=== PATIENT | female | born 1950 | race African-American/Black ===

== ENCOUNTER 2016-11-11 17:27 | Emergency (ER) | payer OTHER, MEDICARE ==
[~2016-11-11] VITALS: Ht 160 cm; Wt 88.5 kg
[2016-11-11] MEDS ORDERED: HYDROcodone/APAP 5/325MG 1 TAB TABLET PO ONE (18:15)
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
[2016-11-11 19:55] VITALS: BP 152/90
--- NOTE | 2016-11-12 06:11 | EKG ---
[facility] [address] [place] [address] Test Date: 2016-11-11 Test Time: 18:14:08 Pat Name: JAIME ANSARI Department: Room: Gender: F [employer] Manager: : 1950 Requested By: MELISSA SELF Order Number: [id number] Reading MD: Edwardo Morris Measurements Intervals [place] Rate: 67 P: 71 MA: 192 QRS: -8 QRSD: 80 T: 3 QT: 442 QTc: 470 Interpretive Statements SINUS RHYTHM Electronically Signed On 11-13-2016 11:16:52 CDT by Edwardo Morris
--- NOTE | 2016-11-12 07:45 | RAD ---
Exam performed: 3 views left knee and lumbar spine. Clinical indication: Pain in the lower back and knee, status post fall Date of Service: 11/11/16 Comparison:None available 3 views left knee findings: AP, oblique and lateral radiographs of the knee reveal the osseous structures to be intact and well aligned. The joint space is well-preserved. The articular margins are smooth. Evidence of calcific loose body or joint effusion is absent. Impression: 1. No acute abnormality seen in the left knee. End impression X-ray lumbar spine findings: AP, lateral and coned views of the lumbosacral spine are obtained. Normal sagittal alignment is preserved. 5 nonrib-bearing vertebral bodies are identified. The vertebral body heights are maintained. There is narrowing of L2/3 and L3/4 intervertebral disc spaces with mild osteophytic spurring. No acute compression fracture. No prevertebral soft tissue swelling is identified. Nonspecific bowel gas pattern. Impression: 1. Mild spondylotic changes and degenerative disc disease involving the lumbar spine. 2. No acute abnormality seen
== END 2016-11-11 19:55 | disposition home or self-care (01) ==
LOC: ER 17:27
DX: S89.92XA Unspecified injury of left lower leg, initial encounter (principal); S39.92XA Unspecified injury of lower back, initial encounter; I10 Essential (primary) hypertension; V43.62XA Car passenger injured in collision with other type car in traffic accident, initial encounter; Y93.89 Activity, other specified; Y92.481 Parking lot as the place of occurrence of the external cause; Y99.8 Other external cause status
CPT/HCPCS: 72100; 73562; 93005; 99284

== ENCOUNTER → 2017-02-02 | Outpatient (CLI) | payer MEDICARE, OTHER ==
--- NOTE | 2017-02-04 14:34 | KCIC ---
Bilateral digital screening mammogram History: Annual screening mammography Comparison: Outside mammograms from [facility] subsequently made available for comparison purposes dated December 11, 2006 through August 10, 2015. Findings: Breast Tissue Density B :There are scattered areas of fibroglandular density. Bilateral digital mammogram images are obtained with CAD. No suspicious masses, architectural distortion, or grouped microcalcifications are identified. Impression: Negative exam. Recommend screening mammogram in one year. BI-RADS Category 1: Negative. PQRS compliance statement - Patient information was entered into a reminder system with a target due date for the next mammogram. Electronically signed by: Keturah Bolden MD (02/04/2017 2:30 PM) [id number]
== END | disposition home or self-care (01) ==
LOC: KCIC MAMMO 18:02
PROVIDERS: ATTEND Obstetrics & Gynecology
DX: Z12.31 Encounter for screening mammogram for malignant neoplasm of breast (principal)
CPT/HCPCS: G0202; 77067

== ENCOUNTER → 2017-10-27 | Outpatient (CLI) | payer MEDICARE, OTHER ==
--- NOTE | 2017-10-27 16:46 | KCIC ---
Bilateral digital screening mammograms with 3-D tomosynthesis: Reason for examination: Routine screening. Comparison is made to previous studies dated 02/02/2017 and 08/10/2015. Bilateral mammograms in CC and oblique projections were obtained with 2-D imaging and 3-D tomosynthesis imaging on a Siemens Inspiration unit and reviewed on the workstation. Interpretation was made with the benefit of CAD. The skin and nipples show no abnormalities. No abnormal axillary lymph nodes are seen. The breast parenchyma shows scattered fatty and fibroglandular density. (Breast density: Category B.) There continued be small nodular parenchymal densities which are unchanged. There are no new dominant masses, suspicious calcifications or architectural distortion. Benign calcifications are present. Impression: No evidence of malignancy. Recommend routine screening. BI-RAD Category 2: Benign. "Our facility is accredited by the [employer] Mammography Program." This patient's information has been entered into a reminder system for the patient to be notified with the results of her examination and a target date for the next mammogram. Electronically signed by: Marcia Blackmon MD (10/27/2017 4:42 PM) [id number]
== END | disposition home or self-care (01) ==
LOC: KCIC MAMMO 13:44
PROVIDERS: ATTEND Family Medicine
DX: Z12.31 Encounter for screening mammogram for malignant neoplasm of breast (principal); I10 Essential (primary) hypertension
CPT/HCPCS: 77063; 77067

== ENCOUNTER → 2018-11-19 | Outpatient (CLI) | payer OTHER ==
--- NOTE | 2018-11-19 16:21 | KCIC ---
Bilateral digital screening mammograms with 3-D tomosynthesis: Reason for examination: Routine screening. Comparison is made to previous examinations dated 10/27/2017 and 02/02/2017. Bilateral mammograms in CC and oblique projections were obtained with 2-D imaging and 3-D tomosynthesis imaging on a Siemens Inspiration unit and reviewed on the workstation. Interpretation was made with the benefit of CAD. The skin and nipples show no abnormalities. No abnormal axillary lymph nodes are seen. The breast parenchyma shows scattered fatty and fibroglandular density. (Breast density: Category B.) There are small parenchymal densities in the right breast which are stable. There are some benign-appearing calcifications in the left breast which are stable. There are no new dominant masses, suspicious calcifications or architectural distortion. Impression: No evidence of malignancy. Recommend routine screening. BI-RAD Category 2: Benign. "Our facility is accredited by the [employer] Mammography [employer]." This patient's information has been entered into a reminder system for the patient to be notified with the results of her examination and a target date for the next mammogram. Electronically signed by: Marcia Blackmon MD (11/19/2018 4:18 PM) [id number]
== END | disposition home or self-care (01) ==
LOC: KCIC MAMMO 14:35
PROVIDERS: ATTEND Family Medicine
DX: Z12.31 Encounter for screening mammogram for malignant neoplasm of breast (principal)
CPT/HCPCS: 77063; 77067

== ENCOUNTER → 2019-11-22 | Outpatient (CLI) | payer MEDICARE, OTHER ==
--- NOTE | 2019-11-22 17:25 | KCIC ---
Bilateral digital screening mammograms with 3-D tomosynthesis: Reason for examination: Routine screening. Comparison is made to previous studies dated back to 08/10/2015. Bilateral mammograms in CC and oblique projections were obtained with 2-D imaging and 3-D tomosynthesis imaging on a Siemens Inspiration unit and reviewed on the workstation. Interpretation was made with the benefit of CAD. The skin and nipples show no abnormalities. No abnormal axillary lymph nodes are seen. The breast parenchyma shows scattered fatty and fibroglandular density. (Breast density: Category B.) There continue to be areas of nodular asymmetry in the upper-outer quadrants bilaterally which are unchanged. There are no new dominant masses, suspicious calcifications or architectural distortion. Benign calcifications are present. Impression: No evidence of malignancy. Recommend routine screening. BI-RAD Category 2: Benign. "Our facility is accredited by the [employer] Mammography Program." This patient's information has been entered into a reminder system for the patient to be notified with the results of her examination and a target date for the next mammogram. Electronically signed by: Marcia Blackmon MD (11/22/2019 5:22 PM) [id number]
--- NOTE | 2019-11-25 09:06 | KCIC ---
EXAM: DUAL ENERGY X-RAY ABSORPTIOMETRY (DEXA). HISTORY: Postmenopausal screening. FINDINGS: The lowest measured T-score is -1.0 in the left hip, based on a bone mineral density of 0.822 g/cm^2. Refer to the worksheets for full detail. No comparison examinations are available. IMPRESSION: Borderline normal. Bone mineral density yields a T-score of -1.0 or greater. Fracture risk is low. METHODOLOGY: Dual energy x-ray absorptiometry was performed to measure bone mineral density. The following analysis is based on the 2019 Official Positions of the International Society for Clinical Densitometry: Measurements of the hips and the average of L1-L4 are preferred. When the spine and/or hip cannot be feasibly measured or interpreted, or in the setting of hyperparathyroidism, distal radial bone mineral density may be measured. The lumbar spine T-score is based on the average bone mineral density of L1-L4. In the setting of artifact or anatomic abnormality, some lumbar levels may be excluded, and the remaining levels used for calculation. A single lumbar level is not used for diagnosis, and if only a single level is available for assessment, another anatomic site will be used to assign a diagnosis. The hip T-score is based on the bone mineral density measurement of the femoral neck or total proximal femur of either side, whichever is lowest. Bilateral mean values are not used for diagnosis. The forearm T-score is derived from 33% of the distal radius of the nondominant forearm. Electronically signed by: Bhakti Pearson MD (11/25/2019 9:03 AM) [id number]
== END | disposition home or self-care (01) ==
LOC: KCIC MAMMO 15:00
PROVIDERS: ATTEND Family Medicine
DX: Z12.31 Encounter for screening mammogram for malignant neoplasm of breast (principal); N64.89 Other specified disorders of breast; Z78.0 Asymptomatic menopausal state
CPT/HCPCS: 77063; 77067; 77080

== ENCOUNTER → 2021-02-04 | Outpatient (CLI) | payer BC, MEDICARE ==
--- NOTE | 2021-02-04 13:45 | KCIC ---
Bilateral digital screening mammograms with 3-D tomosynthesis: Reason for examination: Routine screening. Comparison is made to previous studies dated back to 08/10/2015. Bilateral mammograms in CC and oblique projections were obtained with 2-D imaging and 3-D tomosynthes is imaging on a Siemens Inspiration unit and reviewed on the workstation. Interpretation was made wit h the benefit of CAD. The skin and nipples show no abnormalities. No abnormal axillary lymph nodes are seen. The breast par enchyma shows scattered fatty and fibroglandular density. (Breast density: Category B.) There continu e to be small parenchymal nodules and asymmetries bilaterally which are stable. There are scattered a nd clustered calcifications present which are stable. There are no new dominant masses, suspicious ca lcifications or architectural distortion. Impression: No evidence of malignancy. Recommend routine screening. BI-RAD Category 2: Benign. "Our facility is accredited by the [employer] Mammography [employer]." This patient's information has been entered into a reminder system for the patient to be notified wit h the results of her examination and a target date for the next mammogram. Electronically signed by: Marcia Blackmon MD (02/04/2021 1:42 PM) [id number]
== END ==
LOC: KCIC MAMMO 10:46
PROVIDERS: ATTEND Family Medicine
DX: Z12.31 Encounter for screening mammogram for malignant neoplasm of breast (principal)
CPT/HCPCS: 77063; 77067